=== PATIENT | female | born 1960 | race African-American/Black ===

== ENCOUNTER 2022-06-09 08:52 | Emergency (ER) | payer MEDICAID ==
[~2022-06-09] VITALS: Ht 165.1 cm; Wt 92.0 kg
[2022-06-09] MEDS ORDERED: ONDANSETRON 4MG ODT PO ONE ×2 (09:45→11:51)
[2022-06-09] MEDS ORDERED: KETOROLAC 60MG/2ML VIAL IM ONE ×2 (09:45→12:00)
[2022-06-09] MEDS ORDERED: MORPHINE SULFATE 4 MG/ML CPJ (NOT FOR IM USE) IV STA ×2 (09:53→11:49)
[2022-06-09] MEDS ORDERED: ONDANSETRON HCL 4MG/2ML INJ IV STA ×2 (09:53→11:50)
[2022-06-09] MEDS ORDERED: SODIUM CHLORIDE 0.9% 1,000 ML IV ONE (10:00)
[2022-06-09 11:13] LABS: BASOPHILS % 0.1 % (0.0-2.0); EOSINOPHILS % 1.2 % (0.0-5.0); HEMATOCRIT. 40.9 % (36.0-48.0); HEMOGLOBIN. 13.5 g/dL (12.0-16.0); LYMPHOCYTES % 22.6 % (20.0-50.0); MEAN CORPUSCULAR VOLUME 85.2 fL (81.0-99.0); MONOCYTES % 4.1 % (2.0-8.0); PLATELET 231 x1000/uL (130-400); RED CELL DISTRIBUTION WIDTH 14.9 % (11.6-14.6)
[2022-06-09 11:40] LABS: PROTHROMBIN TIME 10.9 sec (9.6-11.0)
[2022-06-09 11:42] LABS: CHLORIDE 107 mEq/L (98-107)
[2022-06-09 12:27] LABS: CLARITY URINE CLEAR (CLEAR); COLOR URINE YELLOW (YELLOW); KETONES URINE NEGATIVE (NEGATIVE); LEUKOCYTE ESTERASE URINE NEGATIVE (NEGATIVE); NITRITE URINE NEGATIVE (NEGATIVE); OCCULT BLOOD URINE NEGATIVE (NEGATIVE); PH URINE 8.5 (4.5-8.0); PROTEIN URINE TRACE (NEGATIVE); SPECIFIC GRAVITY URINE 1.019 (1.005-1.030)
[2022-06-09] MEDS ORDERED: IBUP-2029 MT (14:11)
[2022-06-09] MEDS ORDERED: OMEP20CA14 MT (14:11)
[2022-06-09] MEDS ORDERED: METR-167 MT (14:11)
[2022-06-09] MEDS ORDERED: CIPR-263 MT (14:11)
[2022-06-09] MEDS ORDERED: ONDA4TAB11 PO (14:11)
[2022-06-09 14:39] VITALS: BP 154/97
== END 2022-06-09 14:40 | disposition home or self-care (01) ==
LOC: ER 09:10
DX: R10.11 Right upper quadrant pain (principal); R10.13 Epigastric pain
CPT/HCPCS: 36415; 76705; 80053; 81003; 83690; 85025; 85610; 93005; 96361; 96372; 96374; 96375; 99285; J1885; J2270; J2405; J7030